=== PATIENT | female | born 1975 | race Hispanic/Latino ===

== ENCOUNTER 2018-04-15 23:17 | Emergency (ER) | payer SELFPAY ==
[2018-04-16 00:29] LABS: BASOPHILS % (AUTO) 1.4 % (0.0-5.0); EOSINOPHILS % (AUTO) 3.6 % (0.0-8.0); HEMATOCRIT 22.9 % (36-48); LYMPHOCYTES % (AUTO) 23.2 % (21.0-51.0); MEAN CORPUSCULAR HEMOGLOBIN 15.6 pg (27.0-33.0); MEAN CORPUSCULAR HGB CONC 28.6 g/dL (32.0-36.0); MEAN CORPUSCULAR VOLUME 54.6 fL (79-99); MONOCYTES % (AUTO) 8.3 % (3.0-13.0); NEUTROPHILS % (AUTO) 63.5 % (40.0-77.0); NUCLEATED RED BLOOD CELLS 0.1 % (0.0-0.19); PLATELET COUNT (AUTO) 271 K/uL (130-400); RED BLOOD CELL COUNT(AUTO) 4.19 MIL/uL (4.00-5.50); RED CELL DISTRIBUTION WIDTH 19.5 % (11.0-15.5); WHITE BLOOD COUNT (AUTO) 10.2 K/uL (4.8-10.8)
[2018-04-16 00:30] LABS: APPEARANCE,URINE Cloudy (CLEAR); BILIRUBIN,URINE Negative (NEGATIVE); COLOR,URINE Yellow (YELLOW); GLUCOSE, URINE (UA) Negative (NEGATIVE); KETONES,URINE Trace mg/dL (NEGATIVE); LEUKOCYTE ESTERASE ,URINE Moderate (NEGATIVE); NITRATE,URINE Negative (NEGATIVE); OCCULT BLOOD,URINE Negative (NEGATIVE); PROTEIN,URINE Negative (NEGATIVE)
[2018-04-16 00:37] LABS: HCG,QUAL RESULT NEGATIVE (NEGATIVE)
[2018-04-16 00:51] LABS: BACTERIA,URINE Few /HPF (None Seen); RBC,URINE None Seen /HPF (0-1)
[2018-04-16] MEDS ORDERED: ACETAMINOPHEN EXTRA STRENGTH 500 MG TABLET ONE (01:18)
== END 2018-04-16 03:11 | disposition home or self-care (01) ==
LOC: EDH 23:17
DX: M94.0 Chondrocostal junction syndrome [Tietze] (principal); D50.9 Iron deficiency anemia, unspecified
CPT/HCPCS: 36415; 71046; 80053; 81001; 81025; 82550; 84484; 85025; 93005

== ENCOUNTER 2020-04-18 09:00 | Inpatient (IN) | payer BC ==
[~2020-04-18] VITALS: Ht 149.9 cm; Wt 77.1 kg
[2020-04-18 10:49] LABS: BASOPHILS % (AUTO) 1.5 % (0.0-5.0); EOSINOPHILS % (AUTO) 3.2 % (0.0-8.0); HEMATOCRIT 35.6 % (36-48); LYMPHOCYTES % (AUTO) 31.1 % (21.0-51.0); MEAN CORPUSCULAR HGB CONC 27.5 g/dL (32.0-36.0); MEAN CORPUSCULAR VOLUME 76.2 fL (79-99); MONOCYTES % (AUTO) 6.8 % (3.0-13.0); NEUTROPHILS % (AUTO) 57.1 % (40.0-77.0); PLATELET COUNT (AUTO) 350 K/uL (130-400); RED BLOOD CELL COUNT(AUTO) 4.67 MIL/uL (4.00-5.50); WHITE BLOOD COUNT (AUTO) 6.6 K/uL (4.8-10.8)
[2020-04-18 11:03] LABS: CREATININE 0.7 mg/dL (0.5-1.5); POTASSIUM 3.7 mmol/L (3.5-5.1)
[2020-04-23 12:33] VITALS: BP 130/64
[2020-04-23] MEDS ORDERED: vitamin d PO (12:39)
[2020-04-23] MEDS ORDERED: LEVO125C4 PO (12:39)
[2020-04-23] MEDS ORDERED: FERR-82 PO (12:39)
[2020-04-23] MEDS ORDERED: NORG1TAB12 PO (12:40)
[2020-04-24] VITALS (23 sets, daily range): BP systolic 119–139; BP diastolic 55–76
[2020-04-24] MEDS: CEFAZOLIN SODIUM 1 GM VIAL IVP SCH ×2 (06:00→11:20)
[2020-04-24 10:21] LABS: BASOPHILS % (AUTO) 2.3 % (0.0-5.0); EOSINOPHILS % (AUTO) 3.8 % (0.0-8.0); HEMATOCRIT 39.5 % (36-48); LYMPHOCYTES % (AUTO) 38.5 % (21.0-51.0); MEAN CORPUSCULAR HEMOGLOBIN 21.7 pg (27.0-33.0); MEAN CORPUSCULAR HGB CONC 28.4 g/dL (32.0-36.0); MEAN CORPUSCULAR VOLUME 76.7 fL (79-99); MONOCYTES % (AUTO) 7.4 % (3.0-13.0); NEUTROPHILS % (AUTO) 47.8 % (40.0-77.0); PLATELET COUNT (AUTO) 413 K/uL (130-400); RED BLOOD CELL COUNT(AUTO) 5.15 MIL/uL (4.00-5.50); WHITE BLOOD COUNT (AUTO) 6.1 K/uL (4.8-10.8)
[2020-04-24] MEDS: LACTATED RINGERS 1000ML 1,000 ML IV SCH ×2 (10:58→13:05)
[2020-04-24] MEDS ORDERED: DEXAMETHASONE SOD PHOSPHATE 10MG/ML 1ML VIAL ONE (11:09)
[2020-04-24] MEDS ORDERED: SUCCINYLCHOLINE 200MG/10ML SYR ONE (11:09)
[2020-04-24] MEDS ORDERED: LIDOCAINE PF 100MG/5ML (2%) SYRINGE 5ML ONE (11:09)
[2020-04-24] MEDS ORDERED: MIDAZOLAM HCL 1 MG/ML 2ML VIAL ONE (11:10)
[2020-04-24] MEDS ORDERED: FENTANYL CITRATE PF 50 MCG/1 ML 2ML VIAL ONE (11:10)
[2020-04-24] MEDS ORDERED: ONDANSETRON 4MG INJ ONE (11:10)
[2020-04-24] MEDS ORDERED: PROPOFOL 10 MG/ML 20ML VIAL IV ONE (11:10)
[2020-04-24] MEDS ORDERED: ROCURONIUM 10MG/1ML SYR 10 MG/ML ML ONE (11:12)
[2020-04-24] MEDS ORDERED: MEPERIDINE-PF 25 MG/ML SYG ONE (13:12)
[2020-04-24] MEDS ORDERED: METOCLOPRAMIDE 10 MG/2 ML VIAL ONE (13:16)
[2020-04-24] MEDS ORDERED: BISACODYL 10 MG SUPP.RECT RC PRN (14:15)
[2020-04-24] MEDS ORDERED: PROMETHAZINE HCL 25 MG/ML 1ML AMPULE IM PRN ×2 (14:15)
[2020-04-24] MEDS ORDERED: MEPERIDINE-PF 75 MG/ML SYG IM PRN (14:15)
[2020-04-24] MEDS ORDERED: ONDANSETRON 4MG INJ IVP PRN (14:15)
[2020-04-24] MEDS ORDERED: MEPERIDINE-PF 75 MG/ML SYG ONE (14:24)
[2020-04-24] MEDS: DEXTROSE 5 %-0.45 % NACL 1,000 ML IV PRN ×2 (14:44→23:05)
[2020-04-25 02:51] VITALS: BP 123/75
[2020-04-25] MEDS: ACETAMINOPHEN WITH CODEINE 1 TAB TAB PO PRN ×2 (02:51→09:27)
[2020-04-25] MEDS: DEXTROSE 5 %-0.45 % NACL 1,000 ML IV PRN (06:01)
[2020-04-25] MEDS: LEVOTHYROXINE 125 MCG TABLET PO SCH (06:02)
[2020-04-25] MEDS: IBUPROFEN 800 MG TAB PO SCH ×3 (06:02→21:07)
[2020-04-25 06:59] LABS: HEMATOCRIT 32.1 % (36-48); MEAN CORPUSCULAR HEMOGLOBIN 21.8 pg (27.0-33.0); MEAN CORPUSCULAR HGB CONC 28.3 g/dL (32.0-36.0); MEAN CORPUSCULAR VOLUME 76.8 fL (79-99); RED BLOOD CELL COUNT(AUTO) 4.18 MIL/uL (4.00-5.50); RED CELL DISTRIBUTION WIDTH 27.6 % (11.0-15.5); WHITE BLOOD COUNT (AUTO) 9.1 K/uL (4.8-10.8)
[2020-04-25 08:12] VITALS: BP 116/85
[2020-04-25] MEDS: DOCUSATE SODIUM 100 MG CAP PO PRN ×2 (09:26→21:06)
[2020-04-25] MEDS: SIMETHICONE 80 MG TAB.CHEW PO PRN ×2 (09:26→21:06)
[2020-04-25 11:47] VITALS: BP 111/71
[2020-04-25] MEDS ORDERED: IBUPROFEN 800 MG TAB PO SCH (14:15)
[2020-04-25 16:13] VITALS: BP 123/54
[2020-04-25 19:50] VITALS: BP 128/73
[2020-04-25 23:34] VITALS: BP 115/60
[2020-04-26 03:00] VITALS: BP 120/70
[2020-04-26] MEDS: LEVOTHYROXINE 125 MCG TABLET PO SCH (06:23)
[2020-04-26] MEDS: IBUPROFEN 800 MG TAB PO SCH (06:24)
[2020-04-26 07:20] VITALS: BP 119/69
[2020-04-26] MEDS: SIMETHICONE 80 MG TAB.CHEW PO PRN (08:33)
[2020-04-26] MEDS: DOCUSATE SODIUM 100 MG CAP PO PRN (08:33)
[2020-04-26] MEDS ORDERED: ACET1TAB25 PO (09:40)
== END 2020-04-26 10:00 | disposition home or self-care (01) | DRG 743 ==
LOC: EDSTATUS 09:00 → DAHIP 04-24 09:44 → WSH 04-24 14:10
PROVIDERS: ADMIT Specialist; ATTEND Specialist
PROC: 0UT70ZZ Resection of Bilateral Fallopian Tubes, Open Approach (ICD-10-PCS; 2020-04-24)
PROC: 0UT90ZZ Resection of Uterus, Open Approach (ICD-10-PCS; principal; 2020-04-24 11:00)
DX: D25.9 Leiomyoma of uterus, unspecified (principal); N92.0 Excessive and frequent menstruation with regular cycle; D64.9 Anemia, unspecified; E06.3 Autoimmune thyroiditis; E66.9 Obesity, unspecified; Z83.3 Family history of diabetes mellitus; Z82.49 Family history of ischemic heart disease and other diseases of the circulatory system; Z83.49 Family history of other endocrine, nutritional and metabolic diseases; Z68.34 Body mass index [BMI] 34.0-34.9, adult
CPT/HCPCS: 36415; 80048; 84703; 85025; 85027; 86850; 86900; 86901; A4344; G0378; J0330; J0690; J1100; J2001; J2175; J2250; J2405; J2550; J2704; J2765; J3010; J7120; U0003

== ENCOUNTER → 2024-04-05 | Outpatient (CLI) | payer BC ==
[~2024-04-05] MED LIST: ACET-2079 PO; FERR-82 PO; LEVO125C4 PO; vitamin d PO
--- NOTE | 2024-04-05 12:19 | HMCIMG ---
Exam: Noncontrast MRI brain REASON: G45.9 Transient cerebral ischemic attack, unspecified COMPARISON: There are no prior MRI scans available for comparison. TECHNIQUE: Routine cerebral imaging protocol was performed. Exam was performed without IV contrast. CONTRAST: None FINDINGS: There is normal appearing brain parenchyma. There are no focal mass lesions. There are no areas of abnormal signal intensity. Ventricles and sulci appear normal. Posterior fossa and brainstem structures appear unremarkable. There is no evidence of intracranial hemorrhage. Diffusion-weighted images are negative for an acute ischemic process. There are no abnormal fluid collections. Extracranial soft tissues appear normal as well. IMPRESSION: 1. Normal noncontrast MRI of the brain.
== END | disposition home or self-care (01) ==
LOC: RAH 11:00
PROVIDERS: ATTEND Family Medicine
DX: G45.9 Transient cerebral ischemic attack, unspecified (principal)
CPT/HCPCS: 70551